=== PATIENT | male | born 1935 | race Caucasian/White ===

== ENCOUNTER → 2022-06-18 | Outpatient (REF) | payer MEDICARE, BC ==
[~2022-06-18] MED LIST: ALLFEN400 MG PO; AMOXICILLIN 8751 TAB PO; ASPIRIN 81M81 MG/TA2 PO; ASPIRIN E.C. 8181 MG PO; ATIVAN 0.50.5 MG/TAB PO; BETAPACE 120MG120 MG PO; CALCIUM 600MG+D1 TAB PO; CARDIZEM CD 12120 MG PO; CETIRIZINE10 MG PO; COZAAR100 MG PO; DEBROX OT; DIOVAN320 MG PO; DULCOLAX S10 MG/SUPP RC; DUO-KAPS1 CAP PO; ELIQUIS 2.5 PO; ELIQUIS 5MG PO; FERROUS SU325 MG/TAB PO; FLOMAX 0.40.4 MG/CAP PO; FOLIC ACID 11 MG/TA1 PO; IMODIUM 2MG CAPS2 MG PO; K-DUR20 MEQ PO; LABETALOL200 MG PO; LASIX 20MG TABL20 MG PO; LIDODERM 5% PATC1 EA TP; LIPITOR 10MG10 MG PO; LOPRESSOR 550 MG/TAB PO; LOPRESSOR100 MG PO; LUTEIN6 MG PO; MAG-OX 400400 MG/TAB PO; MELATONIN5 M1 PO; MELATONIN5 M1 SL; MILK OF MA400 MG/52 PO; MOTRIN 800800 MG/TAB PO; MUCUS RELIEF400 M1 PO; MULTIPLE VITAMI1 TA5 PO; MYLANTA 150 ML150 M1 PO; NATURE'S BLEND100 M2 PO; OMEGA-3 1000 MG1 CAP PO; PREDNISONE10 MG PO; PREDNISONE20 MG PO; SINGULAIR 110 MG/TAB PO; THIAMINE 1100 MG/TAB PO; TOPROL XL 25MG25 MG PO; TOPROL XL100 MG PO; TYLENOL 325MG325 MG PO; TYLENOL 8 HR PO; TYLENOL SU650 MG/SUP RC; VITAMIN C500 MG PO; VITAMIN FLUSH-F1 CAP PO; ZYRTEC 10MG10 MG PO
[2022-06-18 10:55] LABS: COLLECTION METHOD CLEAN CATCH
[2022-06-18 10:56] LABS: ALBUMIN 3.3 gm/dL (3.4-4.8); BILIRUBIN,TOTAL 0.7 mg/dL (0.2-1.2); CALCIUM 8.3 mg/dL (8.4-10.2); CREATININE, serum 1.02 mg/dL (0.72-1.25); POTASSIUM 3.9 mmol/L (3.5-4.5); TOTAL PROTEIN 5.3 gm/dL (6.2-8.1)
[2022-06-18 10:58] LABS: BASO % 0.6 % (0.0-2.0); EOS # 0.2 K/mm3 (0.0-0.7); EOS % 3.5 % (0.0-4.0); GRAN # 2.6 K/mm3 (1.4-6.5); GRAN % 48.7 % (42.2-75.2); HEMATOCRIT 38.6 % (42.0-52.0); HEMOGLOBIN 13.3 g/dl (13.5-18.0); LYMPH # 2.1 K/mm3 (1.2-3.4); LYMPH % 38.4 % (20.0-51.0); MEAN CELL VOLUME 96 fl (80.0-100.0); MEAN CORPUSCULAR HEMOGLOBIN 33 pg (27-31); MEAN CORPUSCULAR HGB CONC 35 g/dl (33.0-37.0); MEAN PLATELET VOLUME 8.7 fl (7.4-10.4); MONO # 0.5 K/mm3 (0.1-0.6); MONO % 8.4 % (1.7-9.3); PLATELET COUNT 144 K/mm3 (130-400); RED BLOOD COUNT 4.03 M/mm3 (4.20-5.60); REDCELL DISTRIBUTION WIDTH-CV 13.5 % (11.5-14.5)
[2022-06-18 10:59] LABS: SQUAMOUS EPITHELIAL None Seen /hpf (0-10); URINE BACTERIA None Seen /hpf (NONE SEEN); URINE RBC 0-2 /hpf (0-2)
[2022-06-18 11:00] LABS: PH 5.5 (5.0-8.5); URINE APPEARANCE Clear (CLEAR/HAZY); URINE BLOOD Negative (NEGATIVE); URINE COLOR Yellow (YELLOW); URINE GLUCOSE Negative (NEGATIVE); URINE KETONE Negative (NEGATIVE); URINE NITRATE Negative (NEGATIVE); URINE PROTEIN(semi-quant) Negative (NEGATIVE); URINE UROBILINOGEN 0.2 E.U/dL (0.2-1.0)
[2022-06-18 11:39] LABS: CHOLESTEROL RISK RATIO 2.8
== END ==
LOC: ZCOL.LAB 10:49
PROVIDERS: Internal Medicine
DX: N40.1 Benign prostatic hyperplasia with lower urinary tract symptoms (principal); D46.9 Myelodysplastic syndrome, unspecified; E78.2 Mixed hyperlipidemia; N18.30 Chronic kidney disease, stage 3 unspecified